=== PATIENT | female | born 2005 | race Two or more races ===

== ENCOUNTER 2025-05-06 23:30 | Emergency (ER) | payer MEDICAID, OTHER ==
[~2025-05-06] VITALS: Ht 165.1 cm; Wt 76.9 kg
[2025-05-06 23:41] VITALS: BP 118/66; PULSE 82; RESP 16; TEMP 99.3; O2SAT 98
[2025-05-07] MEDS: OXYCODONE W/ ACETAMINOPHEN 5/325MG TABLET PO ONE (00:40)
[2025-05-07] MEDS: cefTRIAXone SOD 1,000 MG VL IM ONE (00:41)
[2025-05-07] MEDS: KETOROLAC TROMETH 60MG/2ML VIAL IM ONE (00:42)
--- NOTE | 2025-05-07 00:45 | ED.PDOC ---
Eye-HPI HPI Comments PT PRESENTED TO ED FOR LEFT SIDED TOOTH PAIN X2 DAYS PT STATED "MY WISDOM TEETH ARE COMING OUT". NO FACIAL SWELLING NOTED. 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 Information Source: Patient Mode of Arrival: Ambulatory Past Medical History PAST MEDICAL HISTORY: Denies Surgical History: Denies all surgeries NECK CUTTER History: No Pertinent NECK CUTTER History Family History Family History: Reviewed,noncontributory to illness Social History Smoker: Non-Smoker Alcohol: Denies ETOH Use Drugs: Denies Drug Use Constitutional: denies: chills, diaphoresis, fatigue, fever, malaise, sweats, weakness, others EENTM: reports: others (Dental pain); denies: blurred vision, double vision, ear bleeding, ear discharge, ear drainage, ear pain, ear ringing, eye pain, eye redness, hearing loss, mouth pain, mouth swelling, nasal discharge, nose bleeding, nose congestion, nose pain, photophobia, tearing, throat pain, throat swelling, voice changes Respiratory: denies: cough, hemoptysis, orthopnea, SOB at rest, shortness of breath, SOB with excertion, stridor, wheezing, others Cardiovascular: denies: chest pain, dizzy spells, diaphoresis, Dyspnea on exertion, edema, irregular heart beat, left arm pain, lightheadedness, palpitations, PND, syncope, others Gastrointestinal: denies: abdomen distended, abdominal pain, blood streaked bowels, constipated, diarrhea, dysphagia, difficulty swallowing, hematemesis, melena, nausea, poor appetite, poor fluid intake, rectal bleeding, rectal pain, vomiting, others Genitourinary: denies: abnormal vagina bleeding, burning, dyspareunia, dysuria, flank pain, frequency, hematuria, incontinence, pain, , vagina discharg e, urgency, others Neurological: denies: dizziness, fainting, headache, left sided numbness, left sided weakness, numbness, paresthesia, pre-existing deficit, right sided numbness, right sided weakness, seizure, speech problems, tingling, tremors, weakness, others Musculoskeletal: denies: back pain, gout, joint pain, joint swelling, muscle pain, muscle stiffness, neck pain, others Integumetry: denies: bruises, change in color, change in hair/nails, dryness, laceration, lesions, lumps, rash, wounds, others Allergic/Immunocompromised: denies: Difficulty Healing, Frequent Infections, Hives, Itching, others Hematologic/Lymphatic: denies: anemia, blood clots, easy bleeding, easy bruising, swollen glands, others Endocrine: denies: excessive hunger, excessive sweating, excessive thirst, excessive urination, flushing, intolerance to cold, intolerance to heat, unexplained weight gain, unexplained weight loss, others Psychiatric: denies: anxiety, bipolar disorder, depression, hopeless, panic d isorder, schizophrenia, sleepless, suicidal, others Physical Exam General Appearance: No Apparent Distress, Normal HEENT: Pharynx Normal, TMs Normal, Other (Lower jaw tooth number 37 noted to be cracked no noted external abscess or drainage.) Neck: Full Range of Motion, Non-Tender Respiratory: Lungs Clear, No Respiratory Distress, Normal Breath Sounds Cardiovascular: No Murmur, Normal Peripheral Pulses, Regular Rate/Rhythm Breast Exam: Deferred Gastrointestinal: Non Tender, Soft Genitalia: Deferred Pelvic: Deferred Rectal: Deferred Extremities: Normal range of motion Musculoskeletal : Apperance: Normal Neurologic: Alert, No Motor Deficits, Normal Affect, Normal Mood, No Sensory Deficits Cerebellar Function: Normal Reflexes: Normal Skin: Dry, Normal Color, Warm Lymphatic: No Adenopathy Was a procedure done? Was a procedure done?: No EENT DIFF Eye: N/A Sore Throat: Pharyngitis, Streptococcal, Viral Pharyngitis X-Ray, Labs, Meds, VS Vital Signs Date Time Temp Pulse Resp B/P (MAP) Pulse Ox O2 Delivery O2 Flow Rate FiO2 05/06/25 23:41 99.3 82 16 118/66 (83) 98 99.3 Current Medications Medications (Trade) Dose Ordered Sig/Librado Route Start Time Stop Time Status Last Admin Ketorolac Tromethamine (Toradol Injection) 60 mg ONCE ONCE IM 05/07/25 00:00 05/07/25 00:01 DC 05/07/25 00:42 Ceftriaxone Sodium (Rocephin) 1,000 mg ONCE ONCE IM 05/07/25 00:00 05/07/25 00:01 DC 05/07/25 00:41 Oxycodone/ Acetaminophen (Percocet 5/ 325MG Tablet) 1 tab ONCE ONCE PO 05/07/25 00:00 05/07/25 00:01 DC 05/07/25 00:40 Benzocaine (Hurricaine [place]) 1 spr ONCE ONCE MT 05/07/25 00:45 05/07/25 00:46 DC 05/07/25 00:51 X-Ray, Labs, Meds, VS Comment Patient given Percocet 5 mg p.o., Toradol 60 mg IM, Rocephin 1 g IM, reports improvement in pain requesting discharge at this time. Script trial of Augmentin, gabapentin, and ibuprofen advised to take medications as prescribed side effects discussed. Advised to follow up with dental for resolution. ER return precautions given patient indicates understanding and agrees with discharge plan of care. Time of 1ST Reevaluation: 23:46 Reevaluation 1ST: Unchanged Time of 2ND Reevaluation: 00:59 Reevaluation 2ND: Improved Patient Education/Counseling: Diagnosis, Treatment, Prognosis, Need For Follow Up Family Education/Counseling: Diagnosis, Treatment, Prognosis, Need For Follow Up SEPSIS Sepsis Screen Date sepsis recognized/suspect: May 06, 2025 Time Sepsis recognized/suspect: 2333 Recent Procedure: No On Antibiotic Therapy: No Respiratory Rate >20: No Heart Rate >90: No Temp<36 C (96.8 F) or >38.3 C: No SBP <90 or MAP <65 mmHG: No New Acute Mental Status Change: No Is the patient on CPAP, BIPAP,: No Vital Signs Date Time Temp Pulse Resp B/P (MAP) Pulse Ox O2 Delivery O2 Flow Rate FiO2 05/06/25 23:41 99.3 82 16 118/66 (83) 98 99.3 Medications Medications Dose Ordered Sig/Librado Route Start Time Stop Time Status Last Admin Dose Admin Benzocaine 1 spr ONCE ONCE MT 05/07/25 00:45 05/07/25 00:46 DC 05/07/25 00:51 Ceftriaxone Sodium 1,000 mg ONCE ONCE IM 05/07/25 00:00 05/07/25 00:01 DC 05/07/25 00:41 Ketorolac Tromethamine 60 mg ONCE ONCE IM 05/07/25 00:00 05/07/25 00:01 DC 05/07/25 00:42 Oxycodone/ Acetaminophen 1 tab ONCE ONCE PO 05/07/25 00:00 05/07/25 00:01 DC 05/07/25 00:40 Departure 1 Departure Time of Disposition: 00:55 Impression: Primary Impression: Dental infection Disposition: 01 HOME / SELF CARE / HOMELESS Condition: Stable e-Prescriptions Gabapentin (Gabapentin) 100 Mg Cap 1 CAP PO HS PRN for 7 Days, #14 CAP 1 or 2 capsules at bedtime as needed once for pain Prov: LETTY DIAS 05/07/25 Ibuprofen (Ibuprofen) 800 Mg Tab 800 MG PO Q8HP PRN for 7 Days, #21 TAB Prov: LETTY DIAS 05/07/25 Amoxicillin & Pot Clavulanate (AUGMENTIN TABLET) 875 Mg Tb 875 MG PO BID PRN for 7 Days, #14 TAB Prov: LETTY DIAS 05/07/25 Discharged With: Significant Other Critical Care Note Critical Care Time?: No Stability Stability form required: No LETTY DIAS May 07, 2025 00:45
[2025-05-07] MEDS: BENZOCAINE (DENTAL) 20 % SPRAY 60ML MT ONE (00:51)
[2025-05-07] MEDS ORDERED: GABA-1308 PO (00:58)
[2025-05-07] MEDS ORDERED: IBUP-1456 PO (00:58)
[2025-05-07] MEDS ORDERED: AUG875T PO (00:58)
== END 2025-05-07 02:15 | disposition home or self-care (01) ==
LOC: ER 23:30
DX: K04.7 Periapical abscess without sinus (principal)
CPT/HCPCS: 96372; 99284; J0696; J1885